=== PATIENT | female | born 1950 | race Two or more races ===

== ENCOUNTER 2016-11-04 10:57 | Emergency (ER) | payer MEDICARE, BC ==
--- NOTE | 2016-11-04 11:35 | Emergency Department Record ---
History of Present Illness - General Chief complaint: Lower Extremity Pain Stated complaint: LEG PAIN Time Seen by Provider: 11/04/16 11:31 Source: Patient, Family Mode of Arrival: Wheelchair Limitations: No limitations - History of Present Illness Initial comments: 66 yo female presents with right leg pain for 2-3 days. She feels like it is in the muscle. No injury. No back pain, No specific joint pain. The pain starts in the calf and goes all the way up the leg. No travel. No history of trauma or DVT. MD Complaint: Extremity pain Onset/Timin -: Days(s) Location: Right -: Yes Myalgia Quality: Aching Improves with: Nothing Worsens with: Nothing - Related Data Home Medications Medication Instructions Recorded Confirmed Last Taken Atorvastatin Calcium [Lipitor] 20 mg PO DAILY 11/04/16 11/04/16 11/04/16 Hydrochlorothiazide [Hctz 25Mg] 25 mg PO DAILY 11/04/16 11/04/16 11/04/16 Lisinopril [Zestril] 20 mg PO DAILY 11/04/16 11/04/16 11/04/16 Naproxen [Naprosyn] 500 mg PO BID 11/04/16 11/04/16 11/04/16 Previous Rx's Medication Instructions Recorded Hydrocodone/Acetaminophen [[place] 0.5 - 1 tab PO TID PRN #15 tab 11/04/16 5mg/325mg] Methylprednisolone [Medrol Dose 4 mg PO UD #1 tab.ds.pk 11/04/16 Pack] Allergies Allergy/AdvReac Type Severity Reaction Status Date / Time No Known Drug Allergies Allergy Verified 11/04/16 11:18 Travel Screening - Travel/Exposure Within Last 30 Days Have you traveled within the last 30 days?: No - Travel/Exposure Within Last Year Have you traveled outside the [place] in the last year?: No - Additonal Travel Details Have you been exposed to anyone with a communicable illness?: No - Travel Symptoms Symptom Screening: None Review of Systems Constitutional: Denies: Chills, Fever, Malaise, Weakness Eyes: Denies: Eye discharge ENT: Denies: Congestion, Throat pain Respiratory: Denies: Cough Cardiovascular: Denies: Chest pain, Palpitations, Syncope Endocrine: Denies: Fatigue Gastrointestinal: Denies: Abdominal pain, Diarrhea, Nausea, Vomiting Genitourinary: Denies: Dysuria, Urgency Musculoskeletal: Reports: Myalgia. Denies: Arthralgia, Back pain, Joint swelling, Neck pain Skin: Denies: Bruising, Change in color, Rash Neurological: Denies: Confusion, Headache Psychiatric: Denies: Anxiety Hematological/Lymphatic: Denies: Blood Clots, Easy bleeding, Easy bruising, Swollen glands Past Medical History - SOCIAL HISTORY Smoking Status: Never smoker Alcohol Use: Rare Drug Use: None - RESPIRATORY Hx Respiratory Disorders: No - CARDIOVASCULAR Hx Cardio Disorders: Yes Hx Hypertension: Yes - NEURO Hx Neuro Disorders: No - GI Hx GI Disorders: No - Hx Genitourinary Disorders: No - ENDOCRINE Hx Endocrine Disorders: No - MUSCULOSKELETAL Hx Musculoskeletal Disorders: Yes Hx Arthritis: Yes - PSYCH Hx Psych Problems: No - HEMATOLOGY/ONCOLOGY Hx Hematology/Oncology Disorders: No Family Medical History Any Significant Family History?: No Physical Exam - General General Appearance: Alert, Oriented x3, Cooperative, No acute distress Limitations: No limitations - Head Head exam: Normal inspection - Eye Eye exam: Normal appearance, PERRL - ENT ENT exam: Normal exam - Neck Neck exam: Normal inspection - Respiratory Respiratory exam: Normal lung sounds bilaterally. negative: Respiratory distress - Cardiovascular Cardiovascular Exam: Regular rate, Normal rhythm, Normal heart sounds Peripheral Pulses: 2+: Radial (R) - Rectal Rectal exam: Deferred - exam: Deferred - Extremities Extremities exam: Normal inspection, Full ROM, Normal capillary refill. negative: Calf tenderness, Joint swelling, Pedal edema, Tenderness, Other (Full ROM, no changes of skin, no swelling, non tender, full ROM of hip and knee without pain, intact distal sensation and pulses.) - Back Back exam: Denies: CVA tenderness (R), CVA tenderness (L), Paraspinal tenderness , Tenderness, Vertebral tenderness - Neurological Neurological exam: Alert, Normal gait, Oriented X3, Reflexes normal. negative: Motor sensory deficit - Psychiatric Psychiatric exam: Normal affect, Normal mood - Skin Skin exam: Dry, Intact, Normal color, Warm Course Vital Signs 11/04/16 11:02 Temperature 98.0 F Pulse Rate 77 Respiratory 16 Rate Blood Pressure 158/81 Pulse Ox 98 - Reevaluation(s) Reevaluation #1: The right hip Xr demonstrated osteopenia and mild degenerative changes. 11/04/16 12:40 Reevaluation #2: Venous doppler is negative for DVT. 11/04/16 13:27 Reevaluation #3: We discussed the results and close follow up with the PCP 11/04/16 13:31 Disposition Disposition: Discharge Clinical Impression: Right leg pain Disposition: Home, Self-Care Condition: (1) Good Instructions: Osteoarthritis (ED) Additional Instructions: Avoid prolonged standing or weight bearing Use the walker for support and to take weight off If your leg pain continues you may need to have an MRI or a referral to an orthopedist Prescriptions: Methylprednisolone [Medrol Dose Pack] 4 mg PO UD #1 tab.ds.pk Hydrocodone/Acetaminophen [[place] 5mg/325mg] 0.5 - 1 tab PO TID PRN #15 tab PRN Reason: Pain - General Forms: Patient Portal Access Time of Disposition: 13:33
--- NOTE | 2016-11-10 13:42 | RADIOLOGY REPORT ---
EXAM: PELVIS AND RIGHT HIP HISTORY: PAIN. TECHNIQUE: AP view of the pelvis and two views of the right hip were obtained. Comparison: None. Encounter: Initial. FINDINGS: Negative for acute fracture or dislocation. Mild degenerative change of the hips bilaterally. Degenerative changes of the lower lumbar spine and sacroiliac joints. Osteopenia. The soft tissues are unremarkable. IMPRESSION: OSTEOPENIA. DEGENERATIVE CHANGES, ABOVE. JOB NUMBER: [id number] MTDD
--- NOTE | 2016-11-10 14:08 | US VENOUS DOPPLER REPORT ---
EXAM: RIGHT LOWER EXTREMITY DUPLEX VENOUS ULTRASOUND HISTORY: PAIN. TECHNIQUE: Transverse and longitudinal sonographic images of the right lower extremity deep venous system was obtained. Doppler and spectral analysis with color flow was utilized. Comparison: None. FINDINGS: No visible areas of clot formation. Doppler and spectral analysis with color flow shows normal waveforms bilaterally. Normal compression and augmentation. IMPRESSION: NEGATIVE FOR RIGHT LOWER EXTREMITY DVT. JOB NUMBER: [id number] MTDD
== END 2016-11-04 13:46 | disposition home or self-care (01) ==
LOC: ER 10:57
DX: M79.604 Pain in right leg (principal); M25.551 Pain in right hip; M25.571 Pain in right ankle and joints of right foot
CPT/HCPCS: 99283; 99284